=== PATIENT | female | born 1990 | race Caucasian/White ===

== ENCOUNTER 2018-02-25 21:17 | Emergency (ER) | payer OTHER ==
--- NOTE | 2018-02-25 22:16 | ED Physician Documentation ---
PD HPI CHEST PAIN - Stated complaint Stated Complaint: RAPID HEART RATE - Chief complaint Chief Complaint: Cardiac - History obtained from History obtained from: Patient - History of Present Illness Timing - onset: Today Timing - onset during: Rest (she has had some cough recently and took some cough med (cloricidin with DM) regular dose. [place] onset of fast heart rate and anxious after that. States just regular dose of meds.) Timing - details: Abrupt onset. No: Still present (improving but still feels somewhat anxious/jittery) Quality: Tightness Location: Substernal Improved by: No: Rest Associated symptoms: Shortness of air, Feeling faint / dizzy, Palpitations Similar symptoms before: Has not had sx before Recently seen: Not recently seen Review of Systems Constitutional: denies: Fever Nose: denies: Rhinorrhea / runny nose, Congestion Throat: denies: Sore throat Cardiac: reports: Palpitations (just today). denies: Pedal edema, Calf pain Respiratory: reports: Dyspnea. denies: Cough, Wheezing PD PAST MEDICAL HISTORY - Past Medical History Cardiovascular: Hypertension Respiratory: None Neuro: None - Present Medications Home Medications: Ambulatory Orders Medication Instructions Recorded Confirmed Benzonatate [Tessalon Perle] 100 - 200 mg PO TID PRN #30 capsule 02/25/18 - Allergies Allergies/Adverse Reactions: Allergies Allergy/AdvReac Type Severity Reaction Status Date / Time No Known Drug Allergies Allergy Verified 02/25/18 21:29 - Living Situation Living Situation: reports: With spouse/s.o. Living Arrangement: reports: At home - Social History Does the pt have substance abuse?: No - Family History Family history: reports: Non contributory PD ED PE NORMAL - Vitals Vital signs reviewed: Yes - General General: Alert and oriented X 3, Well developed/nourished - HEENT HEENT: Pharynx benign - Neck Neck: Supple, no meningeal sign, No adenopathy, Thyroid normal - Cardiac Cardiac: RRR, No murmur - Respiratory Respiratory: Clear bilaterally - Abdomen Abdomen: Soft, Non tender - Derm Derm: Normal color, Warm and dry - Extremities Extremities: No tenderness to palpate, Normal ROM s pain, No edema, No calf tenderness / cord - Neuro Neuro: Alert and oriented X 3, No motor deficit, Normal speech Results - Vitals Vitals: Oxygen O2 Source Room air - EKG (time done) 21:32 Rate: Rate (enter#) (84) Rhythm: NSR [place]: Normal Intervals: Normal [place] QRS: Normal Ischemia: Normal ST segments. No: ST elevation c/w ischemia, ST depression PD MEDICAL DECISION MAKING - ED course Complexity details: considered differential (feeling of heart racing but was improving on arrival. NSR here. symptoms after taking regular dose cough med (with DM). No prior similar. Has had some panic attacks in the past. ), d/w patient Departure - Departure Disposition: 01 Home, Self Care Clinical Impression: Irregular heart beats Condition: Stable Record reviewed to determine appropriate education?: Yes Prescriptions: Benzonatate [Tessalon Perle] 100 - 200 mg PO TID PRN #30 capsule PRN Reason: Cough Comments: Drink lots of fluids. Use Tessalon for if needed for cough. Avoid the Coricidin cough medicine or other ones with dextromethorphan in it. Presumably the care of your side effects. Recheck if further episodes happen. If you do have repeat episodes of the feeling of irregular heartbeat, your primary care could set you up with the heart monitor that records it over several days to week. However if this was an isolated episode then no further testing necessarily needed. Discharge Date/Time: 02/25/18 23:32
[2018-02-25] MEDS ORDERED: DEXAMETHASONE 10 MG/ML VIAL PO STA (22:51)
[2018-02-25] MEDS ORDERED: BENZONATATE 100 MG CAPSULE PO STA (22:51)
[2018-02-25] MEDS ORDERED: CHERRY SYRUP 10 ML UDC PO ONE (23:01)
[2018-02-25 23:16] VITALS: BP 116/69
== END 2018-02-25 23:32 | disposition home or self-care (01) ==
LOC: ED 21:17
DX: I49.9 Cardiac arrhythmia, unspecified (principal); I10 Essential (primary) hypertension; R05 Cough
CPT/HCPCS: 93005; 99283; A9270

== ENCOUNTER 2019-10-04 16:07 | Emergency (ER) | payer OTHER ==
--- NOTE | 2019-10-04 16:43 | ED Physician Documentation ---
PD HPI MHE - Stated complaint Stated Complaint: Anxiety - Chief complaint Chief Complaint: MHE - History obtained from History obtained from: Patient - Additional information Additional information: 29-year-old woman presents accompanied by her for concerns for drug abuse and less so alcohol. She has been using dextromethorphan heavily and daily but has not used today. Also on occasion alcohol and marijuana. 4 years ago she was less than honorably discharged because of her drug problems. [place] for today's visit was that her caught her using drugs and found the Coricidin. No suicidal or homicidal ideation. 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 : None HEENT: None Psych: None Musculoskeletal: None Derm: None - Past Surgical History Past Surgical History: Yes General: Other HEENT: Other - Present Medications Home Medications: Ambulatory Orders Medication Instructions Recorded Confirmed No Known Home Medications 10/04/19 10/04/19 - Allergies Allergies/Adverse Reactions: Allergies Allergy/AdvReac Type Severity Reaction Status Date / Time No Known Drug Allergies Allergy Verified 10/04/19 16:41 - Social History Does the pt smoke?: Yes Smoking Status: Current every day smoker Does the pt drink ETOH?: No Does the pt have substance abuse?: No - Immunizations Immunizations are current?: Yes - POLST Patient has POLST: No PD ED PE NORMAL - Vitals Vital signs reviewed: Yes - General General: Alert and oriented X 3, No acute distress - HEENT HEENT: PERRL, EOMI - Neck Neck: Supple, no meningeal sign, No bony TTP - Cardiac Cardiac: RRR, No murmur - Respiratory Respiratory: No respiratory distress, Clear bilaterally - Abdomen Abdomen: Normal bowel sounds, Soft, Non tender - Back Back: No CVA TTP, No spinal TTP - Derm Derm: Normal color, Warm and dry - Neuro Neuro: Alert and oriented X 3, No motor deficit, No sensory deficit, Normal speech Results - Vitals Vitals: Vital Signs - 24 hr 10/04/19 16:32 Temperature 36.7 C Heart Rate 86 Respiratory 18 Rate Blood Pressure 170/116 H O2 Saturation 100 Oxygen O2 Source Room air - EKG (time done) 1611 Rate: Rate (enter#) (74) Rhythm: NSR [place]: Normal Intervals: Normal [place] QRS: Normal Ischemia: Normal ST segments Computer interpretation: Agree with computer PD MEDICAL DECISION MAKING - ED course ED course: 29-year-old woman presents with ongoing drug abuse, needing some resources for rehab. She did not feel the need to start rehab today and was seen by the social services coordinator multiple resources were given. 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 Return if worse.
[2019-10-04 17:39] VITALS: BP 164/106
== END 2019-10-04 17:41 | disposition home or self-care (01) ==
LOC: ED 16:07
DX: F19.10 Other psychoactive substance abuse, uncomplicated (principal); F17.200 Nicotine dependence, unspecified, uncomplicated
CPT/HCPCS: 93005; 99283; 99284